=== PATIENT | female | born 1940 | race Caucasian/White ===

== ENCOUNTER 2018-05-28 09:06 | Emergency (ER) | payer MEDICARE ==
[~2018-05-28] VITALS: Ht 165.1 cm; Wt 42.3 kg
[2018-05-28 09:28] VITALS: BP 104/54
[2018-05-28 10:22] LABS: BASOPHILS % (AUTO) 0.2 % (0-1); LYMPHOCYTES # (AUTO) 0.8 X10'3 (1.1-4.8); MEAN PLATELET VOLUME 6.1 FL (7.4-10.4); MONOCYTES # (AUTO) 0.4 X10'3 (0-0.9); MONOCYTES % (AUTO) 3.6 % (2-12)
[2018-05-28 10:24] LABS: EOSINOPHILS # (AUTO) 0.1 X10'3 (0-0.9); EOSINOPHILS % (AUTO) 0.5 % (0-6); HEMATOCRIT 32.5 % (35.0-45.0); LYMPHOCYTES % (AUTO) 7.1 % (21-51); MEAN CORPUSCULAR HEMOGLOBIN 31.8 PG (27.0-31.0); MEAN CORPUSCULAR HGB CONC 33.8 g/dL (33.0-36.5); MEAN CORPUSCULAR VOLUME 94.2 FL (78-98); NEUTROPHILS # (AUTO) 9.7 X10'3 (1.8-7.7); NEUTROPHILS % (AUTO) 88.6 % (42-75); PLATELET COUNT 794 X10'3 (140-440); RED BLOOD COUNT 3.45 X10'6 (4.20-5.60); RED CELL DISTRIBUTION WIDTH 13.1 % (11.5-14.5)
[2018-05-28 10:42] LABS: ALANINE AMINOTRANSFERASE 21 U/L (12-78); ALBUMIN 2.3 G/DL (3.4-5.0); ALBUMIN/GLOBULIN RATIO 0.6 (1.1-1.5); ALKALINE PHOSPHATASE 85 IU/L (46-116); ANION GAP 9 (8-16); ASPARTATE AMINO TRANSFERASE 10 U/L (10-37); BILIRUBIN,TOTAL 0.5 MG/DL (0.1-1.0); BLOOD UREA NITROGEN 19 MG/DL (7-18); BUN/CREATININE RATIO 27.5 (6.6-38.0); CALCIUM 9.4 MG/DL (8.5-10.1); CHLORIDE 99 MMOL/L (99-107); CREATININE 0.69 MG/DL (0.40-0.90); GLUCOSE 104 MG/DL (70-104); POTASSIUM 3.5 MMOL/L (3.5-5.1); PROTHROMBIN TIME 9.7 SECONDS (9.0-12.0); SODIUM 134 MMOL/L (135-145); TOTAL CARBON DIOXIDE 25.7 MMOL/L (24-32); TOTAL PROTEIN 6.4 G/DL (6.4-8.2); eGFR 83 ML/MIN
[2018-05-28 11:59] LABS: TOTAL CELLS COUNTED 100
[2018-05-28 12:02] LABS: PLATELET ESTIMATE INCREASED
[2018-05-28 14:50] LABS: TOXIC GRANULATION 2+
== END 2018-05-28 14:16 | disposition home or self-care (01) ==
LOC: ER 09:08
DX: K51.90 Ulcerative colitis, unspecified, without complications (principal); Z87.19 Personal history of other diseases of the digestive system; Z96.641 Presence of right artificial hip joint; Z98.890 Other specified postprocedural states
CPT/HCPCS: 36415; 80053; 85025; 85610; 99283

== ENCOUNTER 2018-11-13 10:14 | Emergency (ER) | payer MEDICARE ==
[~2018-11-13] VITALS: Ht 165.1 cm; Wt 43.5 kg
[2018-11-13] MEDS ORDERED: normal saline 1000ML IV soln IVB ONE (10:45)
[2018-11-13] MEDS ORDERED: ondansetron/PF 4mg/2ml inj IV ONE (10:45)
[2018-11-13 11:36] LABS: ALANINE AMINOTRANSFERASE 21 U/L (12-78); ALBUMIN/GLOBULIN RATIO 0.5 (1.1-1.5); ALKALINE PHOSPHATASE 103 IU/L (46-116); ANION GAP 8 (8-16); ASPARTATE AMINO TRANSFERASE 8 U/L (10-37); BILIRUBIN,TOTAL 0.5 MG/DL (0.1-1.0); BLOOD UREA NITROGEN 14 MG/DL (7-18); BUN/CREATININE RATIO 16.9 (6.6-38.0); CALCIUM 7.9 MG/DL (8.5-10.1); CHLORIDE 97 MMOL/L (99-107); CREATININE 0.83 MG/DL (0.40-0.90); GLUCOSE 115 MG/DL (70-104); LIPASE < 50 U/L (73-393); MAGNESIUM 1.6 MG/DL (1.5-2.4); POTASSIUM 3.7 MMOL/L (3.5-5.1); SODIUM 132 MMOL/L (135-145); TOTAL PROTEIN 5.9 G/DL (6.4-8.2); eGFR 67 ML/MIN
[2018-11-13] MEDS ORDERED: loperamide 2mg capsule PO ONE (12:30)
[2018-11-13 12:39] LABS: BASOPHILS % (AUTO) 0.1 % (0-1); HEMOGLOBIN 7.8 g/dl (12.0-16.0); LYMPHOCYTES # (AUTO) 0.5 X10'3 (1.1-4.8); MEAN CORPUSCULAR HGB CONC 33.7 g/dL (33.0-36.5); MEAN PLATELET VOLUME 6.2 FL (7.4-10.4); MONOCYTES # (AUTO) 0.8 X10'3 (0-0.9); NEUTROPHILS # (AUTO) 10.9 X10'3 (1.8-7.7)
[2018-11-13 12:41] LABS: EOSINOPHILS % (AUTO) 0.2 % (0-6); LYMPHOCYTES % (AUTO) 3.8 % (21-51); MEAN CORPUSCULAR HEMOGLOBIN 34.3 PG (27.0-31.0); MEAN CORPUSCULAR VOLUME 101.7 FL (78-98); MONOCYTES % (AUTO) 6.2 % (2-12); NEUTROPHILS % (AUTO) 89.7 % (42-75); PLATELET COUNT 817 X10'3 (140-440); RED BLOOD COUNT 2.26 X10'6 (4.20-5.60); RED CELL DISTRIBUTION WIDTH 12.9 % (11.5-14.5); WHITE BLOOD COUNT 12.1 X10'3 (4.5-11.0)
[2018-11-13] MEDS ORDERED: LOPE2TAB25 PO (12:41)
[2018-11-13 13:39] VITALS: BP 101/73
[2018-11-13 16:00] LABS: PLATELET ESTIMATE INCREASED; TOTAL CELLS COUNTED 100
[2018-11-13 16:01] LABS: POLYCHROMASIA FEW; TOXIC GRANULATION 2+
== END 2018-11-13 13:41 | disposition home or self-care (01) ==
LOC: ER 10:15
DX: K51.90 Ulcerative colitis, unspecified, without complications (principal); R19.7 Diarrhea, unspecified
CPT/HCPCS: 36415; 80053; 83690; 83735; 85025; 96360; 99284; J2405; J7030

== ENCOUNTER 2018-11-20 15:41 | Inpatient (IN) | payer MEDICARE ==
[~2018-11-20] VITALS: Ht 165.1 cm; Wt 52.2 kg
[~2018-11-20 15:41] MED LIST: LOPE2TAB25 PO
[2018-11-20] MEDS ORDERED: normal saline 1000ML IV soln IV ONE (16:25)
[2018-11-20 16:38] LABS: BASOPHILS % (AUTO) 0.1 % (0-1); LYMPHOCYTES # (AUTO) 0.6 X10'3 (1.1-4.8); MEAN PLATELET VOLUME 6.1 FL (7.4-10.4); MONOCYTES # (AUTO) 0.8 X10'3 (0-0.9); WHITE BLOOD COUNT 8.9 X10'3 (4.5-11.0)
[2018-11-20 16:40] LABS: EOSINOPHILS % (AUTO) 0.1 % (0-6); HEMOGLOBIN 7.5 g/dl (12.0-16.0); LYMPHOCYTES % (AUTO) 6.7 % (21-51); MEAN CORPUSCULAR HEMOGLOBIN 34.8 PG (27.0-31.0); MEAN CORPUSCULAR HGB CONC 34.8 g/dL (33.0-36.5); MEAN CORPUSCULAR VOLUME 100.2 FL (78-98); MONOCYTES % (AUTO) 9.1 % (2-12); NEUTROPHILS # (AUTO) 7.5 X10'3 (1.8-7.7); PLATELET COUNT 788 X10'3 (140-440); RED BLOOD COUNT 2.15 X10'6 (4.20-5.60); RED CELL DISTRIBUTION WIDTH 13.3 % (11.5-14.5)
[2018-11-20 16:43] LABS: ALANINE AMINOTRANSFERASE 11 U/L (12-78); ALBUMIN 1.6 G/DL (3.4-5.0); ALBUMIN/GLOBULIN RATIO 0.5 (1.1-1.5); ALKALINE PHOSPHATASE 109 IU/L (46-116); ANION GAP 8 (8-16); ASPARTATE AMINO TRANSFERASE 7 U/L (10-37); BILIRUBIN,TOTAL 0.3 MG/DL (0.1-1.0); BLOOD UREA NITROGEN 20 MG/DL (7-18); CALCIUM 7.7 MG/DL (8.5-10.1); CHLORIDE 92 MMOL/L (99-107); CREATININE 1.11 MG/DL (0.40-0.90); GLUCOSE 104 MG/DL (70-104); LIPASE < 50 U/L (73-393); SODIUM 126 MMOL/L (135-145); TOTAL CARBON DIOXIDE 25.6 MMOL/L (24-32); TOTAL PROTEIN 5.1 G/DL (6.4-8.2); eGFR 48 ML/MIN
[2018-11-20 16:48] LABS: POTASSIUM 4.4 MMOL/L (3.5-5.1)
[2018-11-20 16:49] LABS: HEMATOCRIT 21.6 % (35.0-45.0)
--- NOTE | 2018-11-20 17:05 | NUR ---
pt stated that she is unable to make urine at this time
[2018-11-20] MEDS ORDERED: metroNIDAZOLE-Flagyl 500mg/NS 100 ML IV ONE (17:15)
[2018-11-20] MEDS ORDERED: levoFLOXACIN-Levaquin 750MG/D5 150 ML IV ONE (17:15)
[2018-11-20] MEDS ORDERED: ondansetron/PF 4mg/2ml inj IV PRN (17:30)
[2018-11-20] MEDS ORDERED: HYDROcodone/acetaminophen 5mg/325mg tablet PO PRN (17:30)
[2018-11-20] MEDS ORDERED: mag hydrox/Alum hydrox/simeth 30ml oral suspension PO PRN (17:30)
[2018-11-20] MEDS ORDERED: morphine 2 MG/ML inj. syringe IV PRN ×2 (17:30)
[2018-11-20] MEDS ORDERED: magnesium hydroxide 30ml (MOM) UD suspension PO PRN (17:30)
[2018-11-20] MEDS: normal saline 1000ml 1,000 ML IV SCH (17:41)
[2018-11-20 17:45] LABS: TOTAL CELLS COUNTED 100
[2018-11-20 17:46] LABS: PLATELET ESTIMATE INCREASED; POLYCHROMASIA FEW
[2018-11-20 17:47] LABS: TOXIC GRANULATION 2+
[2018-11-20] MEDS ORDERED: PEG 3350/Na sulf,bicarb,Cl/KCl oral sol 4 liter bottle PO ONE (18:00)
--- NOTE | 2018-11-20 18:00 | NUR ---
DR HARDWICK CALLED AND ORDERED A GOLITELY TO BE GIVEN NOW FOR PREP FOR TOMORROW MORNING. ORDER PLACED. WILL ADMIN ONCE AVAILABLE.
[2018-11-20 18:02] LABS: PARTIAL THROMBOPLASTIN TIME 26 SECONDS (22-32)
[2018-11-20] MEDS ORDERED: ZOLP10TA PO (18:36)
[2018-11-20] MEDS ORDERED: PRE5T PO (18:36)
[2018-11-20] MEDS ORDERED: NIAC-8 PO (18:36)
[2018-11-20] MEDS ORDERED: SULF500T6 PO (18:36)
[2018-11-20] MEDS ORDERED: SULF500T9 PO (19:25)
[2018-11-20] MEDS ORDERED: LISI-600 PO (19:31)
[2018-11-20] MEDS ORDERED: HCTZ25T PO (19:31)
[2018-11-20 20:56] LABS: OCCULT BLOOD STOOL NEGATIVE (Neg)
--- NOTE | 2018-11-20 21:00 | NUR ---
Problems reprioritized. Patient report given, questions answered & plan of care reviewed with JUNE ARAGON. Addendum: 11/20/18 at 2309 by Kaylyn Harley RN Amended: Links added.
[2018-11-20] MEDS: hydrocortisone sod succ/PF 100mg/2ml inj. IV SCH (21:23)
[2018-11-20] MEDS: mesalamine 1.2gm ER tablet PO SCH (21:25)
[2018-11-20 21:30] VITALS: BP 99/52
--- NOTE | 2018-11-20 21:30 | NUR ---
Skin assessment done, pt has bruises bilat arms, right ant shoulder sm scabbed over skin tears from fall weks ago are healed over x3 1 to2 cm, left f/a sm abrasion scabbed over. back clear has small reddish blotchy areas, sacrum sl reddened, blanchable, rectum sl red from liq stools, skin is intact. lower extremeties some bruises, few small abrasions, discolored. no wounds or sores. Addendum: 11/20/18 at 2212 by Kaylyn Harley RN Amended: Links added.
[2018-11-20 23:30] VITALS: BP_SYST 109; BP_SYST 113; BP_SYST 95; BP_DIAS 55; BP_DIAS 60; BP_DIAS 68
--- NOTE | 2018-11-20 23:43 | NUR ---
ASSUMED PT CARE FROM JUNE ARAGON. PT UP TO [facility] VOIDED AND HAD MOD DARK BROWN LIQ STOOL. AND SOLID STOOL. UNABLE TO SEND TO LAB D/T URINE IN STOOL. PT DOES NOT WANT TO DRINK TREVOR, HAS BEEN ENCOURAGED FREQ TO DRINK, BUT SAYS SHE CANNOT DRINK ALL OF IT. PT STATES SHE WILL KEEP DRINKING AFTER PT ENCOURAGED. Addendum: 11/20/18 at 2346 by Kaylyn Harley RN Amended: Links added.
[2018-11-21] VITALS (8 sets, daily range): BP systolic 91–153; BP diastolic 52–67
[2018-11-21 01:17] LABS: BASOPHILS % (AUTO) 0.1 % (0-1); EOSINOPHILS % (AUTO) 0 % (0-6); HEMATOCRIT 22.1 % (35.0-45.0); HEMOGLOBIN 7.7 g/dl (12.0-16.0); LYMPHOCYTES # (AUTO) 0.3 X10'3 (1.1-4.8); LYMPHOCYTES % (AUTO) 3.9 % (21-51); MEAN CORPUSCULAR VOLUME 100.1 FL (78-98); MEAN PLATELET VOLUME 6.5 FL (7.4-10.4); MONOCYTES # (AUTO) 0.4 X10'3 (0-0.9); NEUTROPHILS # (AUTO) 7.2 X10'3 (1.8-7.7); PLATELET COUNT 531 X10'3 (140-440); RED BLOOD COUNT 2.21 X10'6 (4.20-5.60); RED CELL DISTRIBUTION WIDTH 13.1 % (11.5-14.5); WHITE BLOOD COUNT 7.9 X10'3 (4.5-11.0)
[2018-11-21] MEDS: mesalamine 1.2gm ER tablet PO SCH ×4 (02:21→20:10)
[2018-11-21] MEDS: hydrocortisone sod succ/PF 100mg/2ml inj. IV SCH ×4 (02:21→20:10)
[2018-11-21] MEDS: normal saline 1000ml 1,000 ML IV SCH ×2 (02:22→17:01)
--- NOTE | 2018-11-21 02:30 | NUR ---
STOOL COLLECTED FOR CDIFF SENT TO LAB. Addendum: 11/21/18 at 0327 by Kaylyn Harley RN Amended: Links added.
[2018-11-21 02:56] LABS: PLATELET ESTIMATE INCREASED; TOTAL CELLS COUNTED 100
[2018-11-21 02:58] LABS: TOXIC GRANULATION 2+; TOXIC VACUOLATION 1+
--- NOTE | 2018-11-21 04:56 | NUR ---
PT IS STILL DRINKING TREVOR, HAS AROUND 800ML O
--- NOTE | 2018-11-21 04:57 | NUR ---
PT IS STILL DRINKING TREVOR, NEEDS FREQ ENCOURAGEMENT. HAS @ 800ML LEFT. NO N/V. Addendum: 11/21/18 at 0457 by Kaylyn Harley RN Amended: Links added.
--- NOTE | 2018-11-21 06:24 | NUR ---
up to [facility] large amt lt brown liq stool, voided and liq stool in bsc. complete linen change, cristhian care and gown changed. Addendum: 11/21/18 at 0625 by Kaylyn Harley RN Amended: Links added.
--- NOTE | 2018-11-21 06:32 | NUR ---
Problems reprioritized. Patient report given, questions answered & plan of care reviewed with JUNE Morfin. Addendum: 11/21/18 at 0633 by Kaylyn Harley RN Amended: Links added.
--- NOTE | 2018-11-21 06:43 | NUR ---
Patient in room [facility]. I have received report from OJ WATKINS and had the opportunity to ask questions and assume patient care.
[2018-11-21 06:48] LABS: BASOPHILS % (AUTO) 0.1 % (0-1); EOSINOPHILS % (AUTO) 0 % (0-6); MEAN PLATELET VOLUME 6.2 FL (7.4-10.4)
[2018-11-21 06:52] LABS: HEMATOCRIT 25.9 % (35.0-45.0); HEMOGLOBIN 8.9 g/dl (12.0-16.0); LYMPHOCYTES # (AUTO) 0.4 X10'3 (1.1-4.8); LYMPHOCYTES % (AUTO) 3.8 % (21-51); MEAN CORPUSCULAR HEMOGLOBIN 34.8 PG (27.0-31.0); MEAN CORPUSCULAR HGB CONC 34.5 g/dL (33.0-36.5); MONOCYTES # (AUTO) 0.4 X10'3 (0-0.9); MONOCYTES % (AUTO) 3.9 % (2-12); NEUTROPHILS # (AUTO) 9.6 X10'3 (1.8-7.7); NEUTROPHILS % (AUTO) 92.2 % (42-75); PLATELET COUNT 885 X10'3 (140-440); RED BLOOD COUNT 2.56 X10'6 (4.20-5.60); RED CELL DISTRIBUTION WIDTH 13.3 % (11.5-14.5); WHITE BLOOD COUNT 10.4 X10'3 (4.5-11.0)
[2018-11-21 07:37] LABS: ALBUMIN 1.9 G/DL (3.4-5.0); ANION GAP 14 (8-16); BLOOD UREA NITROGEN 12 MG/DL (7-18); BUN/CREATININE RATIO 14.6 (6.6-38.0); CALCIUM 7.8 MG/DL (8.5-10.1); CHLORIDE 95 MMOL/L (99-107); CREATININE 0.82 MG/DL (0.40-0.90); GLUCOSE 132 MG/DL (70-104); POTASSIUM 3.3 MMOL/L (3.5-5.1); SODIUM 133 MMOL/L (135-145); TOTAL CARBON DIOXIDE 24.1 MMOL/L (24-32); eGFR 68 ML/MIN
[2018-11-21 08:13] LABS: PLATELET ESTIMATE INCREASED; TOTAL CELLS COUNTED 100; TOXIC GRANULATION 2+
[2018-11-21 08:20] LABS: BURR CELLS FEW; POLYCHROMASIA FEW; SCHISTOCYTES FEW
[2018-11-21] MEDS ORDERED: MIDAZolam 5mg/5ml vial ONE (10:00)
[2018-11-21] MEDS ORDERED: fentaNYL/PF 50MCG/1 ML 2ML syringe ONE (10:00)
--- NOTE | 2018-11-21 16:32 | NUR ---
Malnutrition consult: Pt admit w/ UC flare up s/p sigmoidoscopy w/ biopsy per MD note. Advanced to full liquids today w/ N and moderate diarrhea note. Stool sent for c.diff per MD note. Pt seen by RD and reports 20 pound wt loss past 3-4 weeks r/t UC and decreased intake. Current wt is pt stated and both RN/EMR state pt reported 1 week decreased PO hx. No prior accurate wt hx but current wt is up from prior ER weights. PO meals pending. At this time pt has mild weakness, no edema/wounds, visible signs of mild muscle/fat wasting, and meets non-severe malnutrition criteria at this time; MD notified. RD provided pt w/ written low-residue diet ed and RD contact information; pt not feeling well enough to accept verbal review. Will need malnutrition ed w/ ONS coupons once stable prior to d/c. Will continue to monitor. Rec: 1. advance diet per MD to low-residue 2. monitor for ONS needs pending PO hx 3. MVI per MD approval 4. weekly wts Addendum: 11/21/18 at [address] Amended: Links added.
--- NOTE | 2018-11-21 17:50 | NUR ---
TRIED TO DO ORTHOSTATIC VITALS X 2 TODAY. PT COULDN'T STAND EITHER TIME
--- NOTE | 2018-11-21 18:41 | NUR ---
Patient in room [facility]. I have received report from Shelbie WATKINS and had the opportunity to ask questions and assume patient care. Patient has family member in the room and is requesting tylenol for pain
[2018-11-21] MEDS: acetaminophen 325mg tablet PO PRN (18:52)
[2018-11-21] MEDS ORDERED: magnesium 4gm in 100ml NS 100 ML IV PRN (21:20)
[2018-11-21] MEDS ORDERED: magnesium Cl slow-release 64mg tablet PO PRN (21:20)
[2018-11-21] MEDS ORDERED: potassium CL 10mEq/100ml bag 100 ML IV PRN (21:20)
[2018-11-21] MEDS: potassium Cl 20 mEq SR tablet PO PRN (21:44)
[2018-11-21] MEDS: Melatonin 3mg tablet PO SCH (21:45)
[2018-11-22] VITALS (7 sets, daily range): BP systolic 115–139; BP diastolic 63–73
--- NOTE | 2018-11-22 00:06 | NUR ---
stool sample sent to lab Addendum: 11/22/18 at 0007 by Kaylyn Harley RN Amended: Links added.
[2018-11-22 00:20] LABS: OCCULT BLOOD STOOL NEGATIVE (Neg)
[2018-11-22] MEDS: normal saline 1000ml 1,000 ML IV SCH ×3 (00:23→19:30)
[2018-11-22] MEDS: mesalamine 1.2gm ER tablet PO SCH ×4 (02:22→20:17)
[2018-11-22] MEDS: hydrocortisone sod succ/PF 100mg/2ml inj. IV SCH ×4 (02:22→20:17)
[2018-11-22] MEDS: potassium Cl 20 mEq SR tablet PO PRN ×4 (02:22→20:15)
[2018-11-22 05:51] LABS: ALBUMIN 1.5 G/DL (3.4-5.0); ANION GAP 12 (8-16); BLOOD UREA NITROGEN 12 MG/DL (7-18); BUN/CREATININE RATIO 21.4 (6.6-38.0); CALCIUM 7.3 MG/DL (8.5-10.1); CHLORIDE 105 MMOL/L (99-107); CREATININE 0.56 MG/DL (0.40-0.90); GLUCOSE 76 MG/DL (70-104); SODIUM 138 MMOL/L (135-145); TOTAL CARBON DIOXIDE 20.9 MMOL/L (24-32); eGFR > 90 ML/MIN
[2018-11-22 05:55] LABS: BASOPHILS % (AUTO) 0.1 % (0-1); EOSINOPHILS % (AUTO) 0 % (0-6); LYMPHOCYTES # (AUTO) 0.4 X10'3 (1.1-4.8); MEAN CORPUSCULAR HGB CONC 33.8 g/dL (33.0-36.5); MONOCYTES # (AUTO) 0.6 X10'3 (0-0.9)
[2018-11-22 05:57] LABS: LYMPHOCYTES % (AUTO) 5.6 % (21-51); MEAN CORPUSCULAR HEMOGLOBIN 34.4 PG (27.0-31.0); MEAN CORPUSCULAR VOLUME 101.7 FL (78-98); MEAN PLATELET VOLUME 6.1 FL (7.4-10.4); MONOCYTES % (AUTO) 8.1 % (2-12); NEUTROPHILS # (AUTO) 6.6 X10'3 (1.8-7.7); NEUTROPHILS % (AUTO) 86.2 % (42-75); PLATELET COUNT 656 X10'3 (140-440); RED BLOOD COUNT 1.95 X10'6 (4.20-5.60); RED CELL DISTRIBUTION WIDTH 13.3 % (11.5-14.5); WHITE BLOOD COUNT 7.6 X10'3 (4.5-11.0)
[2018-11-22 06:06] LABS: HEMATOCRIT 19.8 % (35.0-45.0); HEMOGLOBIN 6.7 g/dl (12.0-16.0)
--- NOTE | 2018-11-22 06:54 | NUR ---
Problems reprioritized. Patient report given, questions answered & plan of care reviewed with Madison WATKINS.
[2018-11-22 07:05] LABS: ANISOCYTOSIS 1+; PLATELET ESTIMATE INCREASED
--- NOTE | 2018-11-22 15:32 | NUR ---
F/u: Pt seen by DIANA for written/verbal malnutrition ed w/ ONS coupons provided. Addendum: 11/22/18 at [address] Amended: Links added.
--- NOTE | 2018-11-22 19:08 | NUR ---
Patient in room [facility]. I have received report from Monica Kwan RN and JUNE Wallace and had the opportunity to ask questions and assume patient care.
[2018-11-22] MEDS: Melatonin 3mg tablet PO SCH (20:17)
[2018-11-22] MEDS ORDERED: Melatonin 3mg tablet PO SCH (21:00)
[2018-11-23] VITALS: BP 122/74
[2018-11-23 00:31] LABS: ALBUMIN 1.6 G/DL (3.4-5.0); ANION GAP 7 (8-16); BLOOD UREA NITROGEN 12 MG/DL (7-18); BUN/CREATININE RATIO 18.8 (6.6-38.0); CALCIUM 7.1 MG/DL (8.5-10.1); CHLORIDE 107 MMOL/L (99-107); CREATININE 0.64 MG/DL (0.40-0.90); GLUCOSE 132 MG/DL (70-104); POTASSIUM 4.8 MMOL/L (3.5-5.1); SODIUM 137 MMOL/L (135-145); TOTAL CARBON DIOXIDE 22.7 MMOL/L (24-32); eGFR 90 ML/MIN
[2018-11-23] MEDS: acetaminophen 325mg tablet PO PRN ×2 (00:49→07:34)
[2018-11-23 01:11] LABS: HEMOGLOBIN 8.3 g/dl (12.0-16.0); MEAN CORPUSCULAR VOLUME 97.3 FL (78-98); MEAN PLATELET VOLUME 6.3 FL (7.4-10.4)
[2018-11-23 01:12] LABS: BASOPHILS % (AUTO) 0.1 % (0-1); EOSINOPHILS % (AUTO) 0 % (0-6); HEMATOCRIT 24.1 % (35.0-45.0); LYMPHOCYTES # (AUTO) 0.4 X10'3 (1.1-4.8); MEAN CORPUSCULAR HEMOGLOBIN 33.7 PG (27.0-31.0); MEAN CORPUSCULAR HGB CONC 34.7 g/dL (33.0-36.5); MONOCYTES # (AUTO) 0.5 X10'3 (0-0.9); MONOCYTES % (AUTO) 8.4 % (2-12); NEUTROPHILS # (AUTO) 5.5 X10'3 (1.8-7.7); NEUTROPHILS % (AUTO) 85.5 % (42-75); PLATELET COUNT 615 X10'3 (140-440); RED BLOOD COUNT 2.47 X10'6 (4.20-5.60); WHITE BLOOD COUNT 6.5 X10'3 (4.5-11.0)
[2018-11-23] MEDS: hydrocortisone sod succ/PF 100mg/2ml inj. IV SCH ×4 (02:10→19:53)
[2018-11-23] MEDS: mesalamine 1.2gm ER tablet PO SCH ×4 (02:10→20:19)
[2018-11-23] MEDS: normal saline 1000ml 1,000 ML IV SCH ×3 (02:10→22:47)
--- NOTE | 2018-11-23 06:27 | NUR ---
Problems reprioritized. Patient report given, questions answered & plan of care reviewed with JUNE Carlson.
--- NOTE | 2018-11-23 06:38 | NUR ---
Skin tear to RFA caused by tourniquet during blood draw. Placed Band-Aid over tear. Addendum: 11/23/18 at 0639 by Staci Glasgow RN Date and time stamp 11/23/18 @ 0015
[2018-11-23 07:20] VITALS: BP_SYST 133; BP_SYST 134; BP_SYST 135; BP_DIAS 72; BP_DIAS 77; BP_DIAS 81
[2018-11-23 08:00] VITALS: BP 135/81
[2018-11-23 10:12] LABS: PLATELET ESTIMATE INCREASED
[2018-11-23 11:35] VITALS: BP 132/75
[2018-11-23 12:18] LABS: ALBUMIN 1.6 G/DL (3.4-5.0); ANION GAP 6 (8-16); BILIRUBIN,TOTAL 0.3 MG/DL (0.1-1.0); BLOOD UREA NITROGEN 15 MG/DL (7-18); BUN/CREATININE RATIO 20.3 (6.6-38.0); CALCIUM 7.2 MG/DL (8.5-10.1); CHLORIDE 106 MMOL/L (99-107); CREATININE 0.74 MG/DL (0.40-0.90); GLUCOSE 169 MG/DL (70-104); MAGNESIUM 1.9 MG/DL (1.5-2.4); POTASSIUM 4.4 MMOL/L (3.5-5.1); SODIUM 134 MMOL/L (135-145); TOTAL CARBON DIOXIDE 22.5 MMOL/L (24-32); TOTAL PROTEIN 4.8 G/DL (6.4-8.2); eGFR 76 ML/MIN
[2018-11-23 12:19] LABS: ALANINE AMINOTRANSFERASE 17 U/L (12-78); ALBUMIN/GLOBULIN RATIO 0.5 (1.1-1.5); ALKALINE PHOSPHATASE 87 IU/L (46-116); ASPARTATE AMINO TRANSFERASE 16 U/L (10-37); PREALBUMIN 12.3 MG/DL (19-36); TRIGLYCERIDES 60 MG/DL (20-135)
[2018-11-23 12:21] LABS: PHOSPHORUS 1.1 MG/DL (2.3-4.5)
[2018-11-23] MEDS ORDERED: acetaminophen 325mg tablet PO PRN (12:30)
[2018-11-23] MEDS: Neutra Phos packet PO SCH ×2 (14:04→21:31)
--- NOTE | 2018-11-23 14:36 | NUR ---
TPN consult: Pt continues with diarrhea, to r/o C.diff and to start TPN to decrease stool output. D/w MD recommendation for PO diet advancement to low residue rather than TPN for bowel regularity given working gut and 100% PO intake of full liquid diet this morning however MD would like to continue with TPN. PICC not placed yet per RN however has been ordered to be placed. Recommendations below d/w pharmacy and are calculated to meet 100% of patient's estimated nutrient needs using IBW as current documented wt is not a scaled weight. Will continue to follow. Rec: 1. Once PICC placed and okay to use, continuous 5/20 Clinimix E with goal rate of 50 mL/hr to provide 60 g protein and 240 g dextrose with dextrose load 3.33 mg/kg/min 2. Piggyback 228 mL 20% intralipids at 19 mL/hr for 12 hours to provide 45.6 g lipids 3. In total, TPN to provide 1272 non protein kcal and 1512 total kcal 4. Prealbumin and TG q / 5. advance diet per MD to low-residue 6. monitor for ONS needs pending PO hx 7. MVI per MD approval 8. Daily wts Addendum: 11/23/18 at [address] Amended: Links added.
[2018-11-23 16:35] LABS: C DIFF ANTIGEN NEGATIVE (NEGATIVE); C DIFF SPECIMEN=DIARRHEA? ACCEPTABLE; C DIFFICILE TOXINS A&B NEGATIVE (Neg)
[2018-11-23 17:27] LABS: ALANINE AMINOTRANSFERASE 17 U/L (12-78); ALBUMIN 1.7 G/DL (3.4-5.0); ALBUMIN/GLOBULIN RATIO 0.5 (1.1-1.5); ALKALINE PHOSPHATASE 89 IU/L (46-116); ANION GAP 8 (8-16); ASPARTATE AMINO TRANSFERASE 15 U/L (10-37); BILIRUBIN,TOTAL 0.4 MG/DL (0.1-1.0); BLOOD UREA NITROGEN 14 MG/DL (7-18); BUN/CREATININE RATIO 26.4 (6.6-38.0); CALCIUM 7.1 MG/DL (8.5-10.1); CHLORIDE 106 MMOL/L (99-107); CREATININE 0.53 MG/DL (0.40-0.90); GLUCOSE 118 MG/DL (70-104); MAGNESIUM 1.9 MG/DL (1.5-2.4); POTASSIUM 4.5 MMOL/L (3.5-5.1); PREALBUMIN 12.7 MG/DL (19-36); SODIUM 136 MMOL/L (135-145); TOTAL CARBON DIOXIDE 21.7 MMOL/L (24-32); TOTAL PROTEIN 4.9 G/DL (6.4-8.2); TRIGLYCERIDES 61 MG/DL (20-135); eGFR > 90 ML/MIN
[2018-11-23 17:31] LABS: PHOSPHORUS 1.2 MG/DL (2.3-4.5)
--- NOTE | 2018-11-23 18:15 | NUR ---
Patient in room [facility]. I have received report from JUNE Muñoz and had the opportunity to ask questions and assume patient care.
--- NOTE | 2018-11-23 18:31 | NUR ---
Problems reprioritized. Patient report given, questions answered & plan of care reviewed with JUNE JARA.
[2018-11-23 19:00] VITALS: BP_SYST 133; BP_SYST 134; BP_SYST 143; BP_DIAS 75; BP_DIAS 76; BP_DIAS 77
[2018-11-23] MEDS: lactobacillus rhamnosus 10,000 MMU CELLS/CAPSULE PO SCH (19:53)
[2018-11-23] MEDS ORDERED: [UNRECOGNIZED DRUG - OTHER] IV SCH (21:00)
[2018-11-23] MEDS ORDERED: CALCIUM IV SCH (21:00)
[2018-11-23] MEDS ORDERED: LYTES IV SCH (21:00)
[2018-11-23] MEDS ORDERED: fat emulsion IV bag 250 ML IV SCH (21:00)
[2018-11-23] MEDS ORDERED: Dextrose 10%-water IV solution 1,000 ML IV PRN (21:00)
[2018-11-23] MEDS ORDERED: DEXT IV SCH (21:00)
[2018-11-23] MEDS ORDERED: TRACE ELEMENT IV SCH (21:00)
[2018-11-23] MEDS: Melatonin 3mg tablet PO SCH (21:31)
[2018-11-24] VITALS: BP 141/81
[2018-11-24] MEDS: mesalamine 1.2gm ER tablet PO SCH ×3 (01:58→14:20)
[2018-11-24] MEDS: hydrocortisone sod succ/PF 100mg/2ml inj. IV SCH ×3 (01:58→14:20)
[2018-11-24 05:12] LABS: BASOPHILS % (AUTO) 0.1 % (0-1); EOSINOPHILS % (AUTO) 0.1 % (0-6); LYMPHOCYTES # (AUTO) 0.4 X10'3 (1.1-4.8); MEAN CORPUSCULAR HEMOGLOBIN 33.9 PG (27.0-31.0); MEAN CORPUSCULAR HGB CONC 34.8 g/dL (33.0-36.5); MEAN CORPUSCULAR VOLUME 97.5 FL (78-98); MEAN PLATELET VOLUME 5.9 FL (7.4-10.4); MONOCYTES # (AUTO) 0.9 X10'3 (0-0.9); MONOCYTES % (AUTO) 9.2 % (2-12); NEUTROPHILS # (AUTO) 8.5 X10'3 (1.8-7.7); NEUTROPHILS % (AUTO) 86.6 % (42-75); PLATELET COUNT 471 X10'3 (140-440); RED BLOOD COUNT 2.23 X10'6 (4.20-5.60); RED CELL DISTRIBUTION WIDTH 14.7 % (11.5-14.5); WHITE BLOOD COUNT 9.8 X10'3 (4.5-11.0)
[2018-11-24 05:24] LABS: HEMATOCRIT 21.8 % (35.0-45.0); HEMOGLOBIN 7.6 g/dl (12.0-16.0)
[2018-11-24 05:45] LABS: ALANINE AMINOTRANSFERASE 16 U/L (12-78); ALBUMIN 1.5 G/DL (3.4-5.0); ALBUMIN/GLOBULIN RATIO 0.5 (1.1-1.5); ALKALINE PHOSPHATASE 78 IU/L (46-116); ANION GAP 6 (8-16); ASPARTATE AMINO TRANSFERASE 14 U/L (10-37); BILIRUBIN,TOTAL 0.3 MG/DL (0.1-1.0); BLOOD UREA NITROGEN 13 MG/DL (7-18); CALCIUM 6.9 MG/DL (8.5-10.1); CHLORIDE 106 MMOL/L (99-107); CREATININE 0.62 MG/DL (0.40-0.90); GLUCOSE 180 MG/DL (70-104); MAGNESIUM 1.7 MG/DL (1.5-2.4); PHOSPHORUS 1.8 MG/DL (2.3-4.5); POTASSIUM 4.1 MMOL/L (3.5-5.1); PREALBUMIN 13.1 MG/DL (19-36); SODIUM 134 MMOL/L (135-145); TOTAL CARBON DIOXIDE 22.3 MMOL/L (24-32); TOTAL PROTEIN 4.4 G/DL (6.4-8.2); TRIGLYCERIDES 70 MG/DL (20-135); eGFR > 90 ML/MIN
--- NOTE | 2018-11-24 06:04 | NUR ---
Pt h/h 7.6/21.8 down from 10/03. MD notified. No change in order. MD states to advise with daytime MD
[2018-11-24 06:32] LABS: PLATELET ESTIMATE INCREASED; TOTAL CELLS COUNTED 100
[2018-11-24 06:35] LABS: BURR CELLS 1+; SCHISTOCYTES FEW
--- NOTE | 2018-11-24 06:56 | NUR ---
Problems reprioritized. Patient report given, questions answered & plan of care reviewed with JUNE Pitt.
--- NOTE | 2018-11-24 07:17 | NUR ---
Patient in room [facility]. I have received report from Afua WATKINS and had the opportunity to ask questions and assume patient care.
[2018-11-24 08:00] VITALS: BP_SYST 145; BP_SYST 151; BP_SYST 152; BP_DIAS 56; BP_DIAS 65; BP_DIAS 84
[2018-11-24] MEDS: MVI, adult No.4 with vit. K 10 ML in dextrose 5% water 500ml 500 ML IV SCH ×4 (08:45→09:00)
[2018-11-24] MEDS: Neutra Phos packet PO SCH ×2 (08:54→12:45)
[2018-11-24] MEDS: lactobacillus rhamnosus 10,000 MMU CELLS/CAPSULE PO SCH (08:54)
[2018-11-24] MEDS ORDERED: glucagon, human recombinant 1mg kit SUBCUT PRN (10:05)
[2018-11-24] MEDS ORDERED: MESSAGE TO PHARMACY PO ONE (10:05)
[2018-11-24] MEDS ORDERED: dextrose 50%-water 50ml dispensing syringe IV PRN ×2 (10:05)
[2018-11-24] MEDS ORDERED: dextrose ORAL solution 15 GM/59 ML bottle PO PRN ×2 (10:05)
[2018-11-24] MEDS ORDERED: insulin regular, human vial - multi-dose SQ SCH (10:05)
[2018-11-24] MEDS ORDERED: sodium chloride inj. 154 MEQ in Dextrose 10%-water IV solution 961.5 ML IV PRN (11:20)
[2018-11-24 12:00] VITALS: BP 136/70
[2018-11-24] MEDS ORDERED: Dextrose 10%-water IV solution 1,000 ML IV SCH (12:05)
--- NOTE | 2018-11-24 16:41 | NUR ---
Per Dr Panda ok to S/L lock patients picc line from TPN for transport to [facility]. [employer] was going to pick patient up for transport and transport patient with D10 running staff on [employer] does not know anything about IV fluids , I myself did not feel comfortable sending patient with IV running with non medical trained staff. Called Dr Panda he is aware of above note and agrees states patient can be S/L aware patients blood sugar was 220 @1430, no insulin given for that. Called and spoke to Ian at [facility] who will relay message to JUNE Anderson, in case they want to check sugars when she gets there or have D10 running.
--- NOTE | 2018-11-24 18:12 | NUR ---
Patient D/C to [facility] per MD orders. Pt left facility on W/C accompanied by [employer] personal. personal belongings sent with pt. telephone report given to Monica KAPLAN.
[2018-11-25 05:14] LABS: HBSAG SCREEN Negative (Negative)
[2018-11-25] MEDS ORDERED: multivitamins, therapeutics tablet PO SCH (08:00)
== END 2018-11-24 17:24 | DRG 385 ==
LOC: ER 15:42 → ED HOLD 17:33 → EEVIPCON 17:33 → SUR 3N 20:35
PROVIDERS: ADMIT Internal Medicine; ATTEND Internal Medicine
PROC: 0DBN8ZX Excision of Sigmoid Colon, Via Natural or Artificial Opening Endoscopic, Diagnostic (ICD-10-PCS; principal; 2018-11-21)
PROC: 30233N1 Transfusion of Nonautologous Red Blood Cells into Peripheral Vein, Percutaneous Approach (ICD-10-PCS; 2018-11-22)
PROC: 02HV33Z Insertion of Infusion Device into Superior Vena Cava, Percutaneous Approach (ICD-10-PCS; 2018-11-23)
PROC: B548ZZA Ultrasonography of Superior Vena Cava, Guidance (ICD-10-PCS; 2018-11-23)
DX: K51.90 Ulcerative colitis, unspecified, without complications (principal); E43 Unspecified severe protein-calorie malnutrition; D62 Acute posthemorrhagic anemia; N17.9 Acute kidney failure, unspecified; Z68.1 Body mass index [BMI] 19.9 or less, adult; E87.1 Hypo-osmolality and hyponatremia; E83.39 Other disorders of phosphorus metabolism; E86.0 Dehydration; I10 Essential (primary) hypertension; M51.36 Other intervertebral disc degeneration, lumbar region; N28.1 Cyst of kidney, acquired; Z96.649 Presence of unspecified artificial hip joint; E87.6 Hypokalemia; I95.9 Hypotension, unspecified
CPT/HCPCS: 36415; 36569; 45380; 71045; 74022; 74176; 76937; 80048; 80053; 82272; 82948; 83605; 83690; 83735; 84100; 84134; 84145; 84478; 85025; 85610; 85730; 86885; 86900; 86901; 86920; 87040; 87045; 87046; 87081; 87324; 87340; 87449; 93005; 96360; 97116; 97161; 97530; 99152; 99285; A4620; G0378; J1720; J1815; J1956; J2250; J3010; J3490; J7030; J7040; J7060; P9016

== ENCOUNTER 2019-01-21 14:12 | Emergency (ER) | payer MEDICARE ==
[~2019-01-21] VITALS: Ht 165.1 cm; Wt 38.6 kg
[~2019-01-21 14:12] MED LIST changes: +HCTZ25T PO; +LISI-600 PO; +PRE5T PO; +SULF500T9 PO; +ZOLP10TA PO
[2019-01-21 15:05] LABS: BASOPHILS % (AUTO) 0.1 % (0-1); EOSINOPHILS % (AUTO) 0.1 % (0-6); HEMATOCRIT 23.3 % (35.0-45.0); HEMOGLOBIN 7.9 g/dl (12.0-16.0); LYMPHOCYTES # (AUTO) 0.7 X10'3 (1.1-4.8); LYMPHOCYTES % (AUTO) 11.8 % (21-51); MEAN CORPUSCULAR HEMOGLOBIN 32.7 PG (27.0-31.0); MEAN CORPUSCULAR HGB CONC 33.9 g/dL (33.0-36.5); MEAN CORPUSCULAR VOLUME 96.4 FL (78-98); MEAN PLATELET VOLUME 6.2 FL (7.4-10.4); MONOCYTES # (AUTO) 0.6 X10'3 (0-0.9); NEUTROPHILS # (AUTO) 4.9 X10'3 (1.8-7.7); PLATELET COUNT 298 X10'3 (140-440); RED BLOOD COUNT 2.41 X10'6 (4.20-5.60); RED CELL DISTRIBUTION WIDTH 17.7 % (11.5-14.5); WHITE BLOOD COUNT 6.2 X10'3 (4.5-11.0)
[2019-01-21 15:23] LABS: CLARITY,URINE CLOUDY (Clear); COLOR,URINE YELLOW (Yellow); GLUCOSE, URINE NEGATIVE (Neg); KETONES,URINE NEGATIVE (Neg); LEUKOCYTE ESTERASE ,URINE TRACE (Neg); NITRITES, URINE NEGATIVE (Neg); OCCULT BLOOD,URINE NEGATIVE (Neg); PROTEIN,URINE TRACE mg/dl (Neg); UROBILINOGEN,URINE 0.2 E.U/dL (0.2-1.0)
[2019-01-21 15:26] LABS: ALANINE AMINOTRANSFERASE 23 U/L (12-78); ALBUMIN 1.4 G/DL (3.4-5.0); ALBUMIN/GLOBULIN RATIO 0.5 (1.1-1.5); ALKALINE PHOSPHATASE 193 IU/L (46-116); ANION GAP 2 (8-16); ASPARTATE AMINO TRANSFERASE 14 U/L (10-37); BILIRUBIN,TOTAL 0.3 MG/DL (0.1-1.0); BLOOD UREA NITROGEN 17 MG/DL (7-18); BUN/CREATININE RATIO 27.4 (6.6-38.0); CALCIUM 7.1 MG/DL (8.5-10.1); CHLORIDE 100 MMOL/L (99-107); CREATININE 0.62 MG/DL (0.40-0.90); GLUCOSE 92 MG/DL (70-104); LIPASE < 50 U/L (73-393); SODIUM 132 MMOL/L (135-145); TOTAL CARBON DIOXIDE 30.3 MMOL/L (24-32); TOTAL PROTEIN 4.3 G/DL (6.4-8.2); eGFR > 90 ML/MIN
[2019-01-21 15:27] LABS: UA COLLECTION TYPE STRAIGHT CATH
[2019-01-21 15:29] LABS: BACTERIA,URINE 4+ /HPF (Neg); RBC,URINE 0-2 /HPF (0-2); SQUAMOUS EPITHELIAL CELL,UR FEW /LPF (FEW)
[2019-01-21] MEDS ORDERED: normal saline 1000ML IV soln IV ONE (15:45)
[2019-01-21] MEDS ORDERED: CefTRIAXone 2gm/D5W 50ml 50 ML IV ONE (15:50)
[2019-01-21 17:03] VITALS: BP 121/68
[2019-01-21] MEDS ORDERED: CEPH500C5 PO (18:08)
--- NOTE | 2019-01-21 18:12 | NUR ---
called friend to pick her up awaiting arrival
[2019-01-26] MEDS ORDERED: PRED10TA23 PO (17:15)
[2019-01-26] MEDS ORDERED: LOPE2TAB25 PO (17:17)
[2019-01-26] MEDS ORDERED: OTC IRON SUPPLEMENT PO (17:20)
== END 2019-01-21 19:05 | disposition home or self-care (01) ==
LOC: ER 14:13
DX: E86.0 Dehydration (principal); R53.1 Weakness; N39.0 Urinary tract infection, site not specified; Z98.890 Other specified postprocedural states; Z79.2 Long term (current) use of antibiotics; Z79.899 Other long term (current) drug therapy
CPT/HCPCS: 36415; 72100; 72170; 80053; 81001; 83690; 85025; 87077; 87088; 87186; 93005; 96365; 99284; J0696; J7030